=== PATIENT | female | born 1990 | race Caucasian/White ===

== ENCOUNTER 2016-12-25 06:30 | Inpatient (IN) | payer OTHER ==
[~2016-12-25] VITALS: Ht 160 cm; Wt 92.1 kg
--- NOTE | ~2016-12-25 | HP ---
ADMIT: 12/25/2016 RM/LOC: 224 [facility] MR#: [id number] [address] [address] ELEAZAR BOLTON [address] [place] [id number] Pre-OP History and Physical SEX: F AGE: 26 : 1990 DATE OF SERVICE: HISTORY OF PRESENT ILLNESS: The patient is a 26-year-old 3, para 2-0- 0-2, who presents to Labor and Delivery at 39 and 2/7th weeks' gestation with estimated date of confinement of 12/30/2016. The patient presents for a scheduled repeat section. The patient's has also been complicated by history of preeclampsia with previous , and blood pressure has been stable throughout the . She also has a history of greater than days in the , and estimated weight is approximately 89th percentile. LABORATORY DATA: Blood type AB positive, antibody screen negative, and RPR nonreactive. HIV negative. Hep B surface antigen negative. Gonorrhea and chlamydia negative. Normal 1-hour glucose tolerance test, and group B strep is positive. PAST MEDICAL HISTORY: Noncontributory. PAST SURGICAL HISTORY: Breast reduction in 2009, section x2, and tonsillectomy in 2008. ALLERGIES: NO KNOWN MEDICAL ALLERGIES. CURRENT MEDICATIONS: Fioricet as needed for headache and vitamin daily. FAMILY HISTORY: Father with diabetes mellitus. SOCIAL HISTORY: The patient is . She denies any alcohol, tobacco, or drug use. PHYSICAL EXAMINATION: VITAL SIGNS: On admission, vital signs are stable. The patient is afebrile. GENERAL: The patient is alert and oriented, in no acute distress. ADMIT: 12/25/2016 RM/LOC: 224 [facility] MR#: [id number] [address] [facility] [address] [place], [place] [address] ELEAZAR BOLTON [address] [place] [address] Pre-OP History and Physical SEX: F AGE: 26 : 1990 HEART: Regular rate and rhythm without murmurs, gallops, or rubs. LUNGS: Clear to auscultation bilaterally. ABDOMEN: Soft, nontender, gravid. EXTREMITIES: No edema. No calf tenderness. ASSESSMENT/PLAN: A 26-year-old 3, para 2-0-0-2, at 39 and 2/7th weeks' gestation previous history of section x2. Plan is to proceed with repeat low transverse section. Risks, benefits, and alternatives of surgery including, but not limited to the risk of bleeding, possibly requiring blood transfusion, risk of infection, and the risk of injury to bowel or bladder have been discussed with the patient, and she wishes to proceed. Arua Batres MD/ linda JOB #: [id number] CC: Aura Batres, Attending Physician Gurvinder Bains, Family Physician
[2016-12-28] MEDS ORDERED: PRENATAL VIT1 TAB PO (12:55)
[2016-12-28] MEDS ORDERED: MOTRIN-DPS800 MG PO (12:55)
[2016-12-28] MEDS ORDERED: COLACE-DPS100 MG PO (12:55)
[2016-12-28] MEDS ORDERED: PERCOCET 5 DPS1 TAB PO (12:56)
[2016-12-28] MEDS ORDERED: NIPPLECREAM TP (12:56)
--- NOTE | 2017-01-21 07:21 | OR ---
ADMIT: 12/25/2016 RM/LOC: 224 [facility] MR#: [id number] [address] [facility] [address] [place] [id number] ELEAZAR BOLTON [address] [place] [id number] Operative/Delivery Room Report SEX: F AGE: 26 : 1990 SURGERY DATE: 12/25/2016 SURGEON: Aura Batres MD NAME OF PROCEDURE: Repeat section. INSIDE SALES MANAGER: Renae Mari MD Resident PREOPERATIVE DIAGNOSES: 1. Intrauterine at 39-2/7th weeks' gestation. 2. Previous section x1. POSTOPERATIVE DIAGNOSES: 1. Intrauterine at 39-2/7th weeks' gestation. 2. Previous section x1. FINDINGS: 1. Live born male infant, scores 9 at 1 minute and 9 at 5 minutes, weight 8 pounds 12 ounces. 2. Normal appearing uterus, tubes, and ovaries bilaterally. ESTIMATED BLOOD LOSS: 500 mL. ANESTHESIA: Spinal. COMPLICATIONS: None. INDICATIONS FOR PROCEDURE: The patient is a 26-year-old 3 para 2-0-0- 2, presented to Labor and Delivery at 39-2/7th weeks' gestation for scheduled repeat section. The patient's had been otherwise uncomplicated. The risks, benefits, and alternatives of surgery have been discussed with the patient, she wished to proceed. DESCRIPTION OF PROCEDURE: The patient was taken to the operating room where spinal anesthesia was obtained without difficulty. The patient was placed in dorsal supine position in leftward tilt, and prepped and draped in usual sterile fashion. Pfannenstiel skin incision was made with scalpel and was carried through to the underlying layer of fascia. The fascia was nicked in midline and this incision was extended bilaterally. The superior aspect of the fascial incision was grasped with Jason clamps, elevated, and underlying rectus muscles were dissected off with Israel scissors and bluntly. In a similar fashion, inferior aspect of the fascial incision was grasped with Jason clamps, elevated, and the underlying rectus muscles were dissected off with Israel scissors and bluntly. The perineum was entered bluntly and this incision was extended bluntly as well. The bladder blade was then placed. The vesicouterine peritoneum was identified and entered sharply with Metzenbaum scissors. This incision was extended bilaterally and a bladder flap was created digitally. The bladder blade was then replaced. The lower uterine segment was incised with a scalpel. This incision was extended ADMIT: 12/25/2016 RM/LOC: 224 [facility] MR#: [id number] [id number] [address] ELEAZAR BOLTON [address] [place] [address] Operative/Delivery Room Report SEX: F AGE: 26 : 1990 bluntly. Large amount of amniotic fluid was noted. The infant's vertex was grasped, and there was noted to be some difficulty delivering the vertex. The muscles were then incised with bandage scissors to allow for more room, and the infant's vertex then easily delivered. The remainder of the infant delivered without difficulty as well. The infant was dried. The cord was clamped and cut, and the infant was handed off to the warmer. Nursing personnel were in attendance. The placenta then delivered intact. The uterus was exteriorized and cleared of all clots and debris. The uterine incision was closed in a running locked fashion using 0 Vicryl. One additional figure- of-eight stitch was used for hemostasis of the uterine incision. The uterus was then replaced into the abdominal cavity. The gutters were checked and cleared of all clots and debris. The uterine incision was again examined and was noted to be hemostatic. The muscles and fascia were made hemostatic with electrocautery. The fascial incision was closed in a running fashion using 0 Vicryl. The subcutaneous layer was made hemostatic with electrocautery. The subcutaneous layer was brought together using interrupted 2-0 plain gut and the skin incision was closed with subcuticular stapler. The patient tolerated the procedure well. All sponge and needle counts were correct. The patient and her infant recovered in the room in stable condition. Aura Batres MD/ linda JOB #: [id number] CC: Aura Batres, Attending Physician Gurvinder Bains, Family Physician
--- NOTE | 2017-03-08 08:40 | DS ---
ADMIT: 12/25/2016 RM/LOC: 224 [facility] MR#: [id number] 2620 [facility] [address] [place] [phone] ELEAZAR BOLTON [address] [place] [id number] General Discharge Summary SEX: F AGE: 26 : 1990 ADMISSION DATE: 12/25/2016 DISCHARGE DATE: 12/27/2016 ADMISSION DIAGNOSES: 1. Intrauterine at 39 and 2/7th weeks' gestation. 2. History of previous section x1. 3. History of previous affected by preeclampsia. DISCHARGE DIAGNOSES: 1. Intrauterine at 39 and 2/7th weeks' gestation. 2. History of previous section x1. 3. History of previous affected by preeclampsia. PROCEDURES PERFORMED: Repeat low transverse section performed on 12/25/2016 with delivery of liveborn male infant, Apgars 9 at 1 minute and 9 at 5 minutes. Weight 8 pounds 12 ounces. HOSPITAL COURSE: The patient underwent the above-named procedure on 12/25/2016. Postoperatively, the patient did well. On postoperative day #1, the patient's pain was controlled. Postoperative hemoglobin was noted be 10.8. The patient was noted have mildly elevated blood pressures postoperatively. By postoperative day #2, the patient was ambulating, voiding, and tolerating a regular diet. Blood pressures were in the 120s to 140s over 70s to 80s. The patient deemed stable for discharge on postoperative day #2. DISCHARGE INSTRUCTIONS: The patient is to be discharged to home. She is to continue Motrin and Percocet as needed for pain control. She is to follow up in the clinic in 2 weeks for incision check and 6 weeks for a check. FINAL DISPOSITION: The patient is to home. CONDITION ON DISCHARGE: Stable. Aura Batres MD/ linda JOB #: [id number] CC: Aura Batres MD, Attending Physician Gurvinder Bains MD, Family Physician
== END 2016-12-27 14:30 | disposition home or self-care (01) | DRG 765 ==
LOC: 2LDRP 06:30 → BC 06:30 → 2LDRP 06:31 → BC 06:34 → 2LDRP 12-27 14:30 → BC 12-30 08:00
PROVIDERS: ADMIT Obstetrics & Gynecology
PROC: 10D00Z1 Extraction of Products of Conception, Low, Open Approach (ICD-10-PCS; principal; 2016-12-25)
DX: O34.211 Maternal care for low transverse scar from previous cesarean delivery (principal); D62 Acute posthemorrhagic anemia; O13.4 Gestational [pregnancy-induced] hypertension without significant proteinuria, complicating childbirth; O90.81 Anemia of the puerperium; Z3A.39 39 weeks gestation of pregnancy; Z37.0 Single live birth